=== PATIENT | male | born 1960 | race Caucasian/White ===

== ENCOUNTER → 2016-10-01 | Outpatient (REF) | LOC: M LAB 11:26 | PROVIDERS: ATTEND Nurse Practitioner Adult Health | DX: Z02.89 Encounter for other administrative examinations (principal) ==

== ENCOUNTER 2017-05-08 08:02 | Day surgery (SDC) | payer OTHER ==
[~2017-05-08 08:02] MED LIST: LIDOCAINE 2% INJ 100 MG/5 ML SDV (FOR ANES.) As Ordered; PROPOFOL 200 MG/20 ML VIAL As Ordered
[2017-05-08] MEDS ORDERED: NS 1,000 ML IV (09:45)
== END 2017-05-08 09:38 | disposition home or self-care (01) ==
LOC: M OPP 08:02
DX: Z12.11 Encounter for screening for malignant neoplasm of colon (principal); D12.5 Benign neoplasm of sigmoid colon; K64.4 Residual hemorrhoidal skin tags; K64.8 Other hemorrhoids; K21.9 Gastro-esophageal reflux disease without esophagitis; R12 Heartburn; M54.2 Cervicalgia; F43.10 Post-traumatic stress disorder, unspecified; Z79.899 Other long term (current) drug therapy; Z80.3 Family history of malignant neoplasm of breast; Z87.891 Personal history of nicotine dependence
CPT/HCPCS: 45380

== ENCOUNTER 2023-12-03 12:26 | Observation (INO) | payer OTHER ==
[~2023-12-03] VITALS: Ht 188 cm; Wt 103.2 kg
[~2023-12-03 12:26] MED LIST changes: +ATOR1TAB21 PO; +ERGO500029 PO; +IBUP80TA; -LIDOCAINE 2% INJ 100 MG/5 ML SDV (FOR ANES.) As Ordered; +OMEP-173 PO; +OMEP1CAP73; -PROPOFOL 200 MG/20 ML VIAL As Ordered; +SUDO30TA2
[2023-12-03] MEDS ORDERED: ISOVUE-370 76% 100ML VIAL As Ordered ONE (13:11)
[2023-12-03 13:33] LABS: BASO # 0.1 10^3/uL (0.0-0.2); BASO % 0.8 % (0.0-1.0); EOS # 0.1 10^3/uL (0.0-0.5); HEMATOCRIT 38.4 % (42.0-52.0); LYMPH # 1.3 10^3/uL (1.5-5.0); LYMPH % 20.7 % (24.0-44.0); MEAN CORPUSCULAR HEMOGLOBIN 32.5 pg (27.0-33.0); MEAN CORPUSCULAR HGB CONC 33.9 g/dl (32.0-36.5); MONO # 0.6 10^3/uL (0.0-0.8); MONO % 9.8 % (2.0-8.0); NEUTROPHILS # 4.2 10^3/uL (1.5-8.5); NEUTROPHILS % 67.4 % (36.0-66.0); WHITE BLOOD COUNT 6.2 10^3/uL (4.0-10.0)
[2023-12-03 13:54] LABS: BLOOD UREA NITROGEN 18 MG/DL (9-23); CALCIUM LEVEL 9.2 MG/DL (8.3-10.6); CARBON DIOXIDE LEVEL 25 MMOL/L (20-31); CHLORIDE LEVEL 111 MMOL/L (98-107); CPK CREATINE PHOSPHOKINASE 111 U/L (46-171); CREATININE FOR GFR 1.03 MG/DL (0.70-1.30); GLOMERULAR FILTRATION RATE > 60.0 (>49); GLUCOSE, FASTING 102 MG/DL (74-106); POTASSIUM SERUM 3.8 MMOL/L (3.5-5.1); SODIUM LEVEL 142 MMOL/L (136-145)
[2023-12-03 13:55] LABS: CK-MB VALUE MASS < 1.0 NG/ML (<3.6)
[2023-12-03 14:03] LABS: INR 1.02; PARTIAL THROMBOPLASTIN TIME 21.3 SECONDS (24.8-34.2); PROTHROMBIN TIME 13.1 SECONDS (12.5-14.5)
[2023-12-03] MEDS: CLOPIDOGREL 300 MG TAB (PLAVIX) PO STA (14:52)
[2023-12-03 14:54] LABS: CHOLESTEROL LEVEL 152 MG/DL (<200); CHOLESTEROL RISK RATIO 2.28 (<5); HDL CHOLESTEROL 66.6 MG/DL (>40); NON-HDL-C 85.4 MG/DL; TRIGLYCERIDES LEVEL 67 MG/DL (<150)
[2023-12-03] MEDS: NS 1,000 ML IV SCH (14:55)
[2023-12-03] MEDS: ASPIRIN 325 MG TAB PO ONE (14:55)
[2023-12-03] MEDS: ATORVASTATIN 20 MG TAB PO ONE (14:55)
[2023-12-03] MEDS ORDERED: [UNRECOGNIZED DRUG - CODE] PO (15:07)
[2023-12-03] MEDS ORDERED: VITA180C2 PO (15:07)
[2023-12-03] MEDS ORDERED: MV-M1TAB66 PO (15:07)
[2023-12-03] MEDS ORDERED: HOME MED LIST COMPLETE! XX SCH (15:10)
[2023-12-03 15:45] LABS: PLATELET COUNT, AUTOMATED 258 10^3/uL (150-450)
[2023-12-03] MEDS: NS 1,000 ML IV ONE (19:20)
[2023-12-03 21:47] VITALS: BP 117/65; TEMP 97.5; O2SAT 96
[2023-12-04 03:13] VITALS: BP 125/65; TEMP 98.5; O2SAT 97
[2023-12-04 06:40] LABS: HEMATOCRIT 33.1 % (42.0-52.0); HEMOGLOBIN 11.2 g/dl (13.5-17.5); MEAN CORPUSCULAR HEMOGLOBIN 32.8 pg (27.0-33.0); MEAN CORPUSCULAR HGB CONC 33.8 g/dl (32.0-36.5); MEAN CORPUSCULAR VOLUME 97.1 fl (80.0-96.0); PLATELET COUNT, AUTOMATED 214 10^3/uL (150-450); RED BLOOD COUNT 3.41 10^6/uL (4.30-6.10); WHITE BLOOD COUNT 5.3 10^3/uL (4.0-10.0)
[2023-12-04 06:51] LABS: BLOOD UREA NITROGEN 13 MG/DL (9-23); CALCIUM LEVEL 8.8 MG/DL (8.3-10.6); CARBON DIOXIDE LEVEL 25 MMOL/L (20-31); CHLORIDE LEVEL 114 MMOL/L (98-107); CREATININE FOR GFR 0.91 MG/DL (0.70-1.30); GLOMERULAR FILTRATION RATE > 60.0 (>49); GLUCOSE, FASTING 101 MG/DL (74-106); POTASSIUM SERUM 3.8 MMOL/L (3.5-5.1); SODIUM LEVEL 143 MMOL/L (136-145)
[2023-12-04 07:08] LABS: HEMOGLOBIN A1c 5.1 % (4.0-6.0)
[2023-12-04] MEDS: CLOPIDOGREL 75 MG TAB PO SCH (09:14)
[2023-12-04] MEDS: ATORVASTATIN 20 MG TAB PO SCH (09:14)
[2023-12-04] MEDS: ENOXAPARIN 40MG/0.4ML SYRINGE (J1650 PER 10MG) SC SCH (09:14)
[2023-12-04] MEDS: ASPIRIN 81MG CHEW TABLET PO SCH (09:14)
[2023-12-04] MEDS: PANTOPRAZOLE 20 MG TAB PO SCH (10:13)
[2023-12-04 14:05] VITALS: BP 137/84; TEMP 97.6; O2SAT 97
[2023-12-04] MEDS ORDERED: ASPI81CH33 PO (14:05)
[2023-12-04] MEDS ORDERED: ATOR80TA59 PO (14:05)
== END 2023-12-04 14:45 | disposition home or self-care (01) ==
LOC: M ED 12:26 → EDBD 12:26 → INTOOBSV 12:27 → M ED INP 12:27
PROVIDERS: ADMIT Internal Medicine; ATTEND Internal Medicine
DX: R47.01 Aphasia (principal); R55 Syncope and collapse; R42 Dizziness and giddiness; R00.1 Bradycardia, unspecified; I73.9 Peripheral vascular disease, unspecified; J01.00 Acute maxillary sinusitis, unspecified; E78.5 Hyperlipidemia, unspecified; K21.9 Gastro-esophageal reflux disease without esophagitis; R03.0 Elevated blood-pressure reading, without diagnosis of hypertension; Z79.899 Other long term (current) drug therapy
CPT/HCPCS: 36415; 70450; 70496; 70498; 70544; 70551; 71045; 80047; 80048; 80061; 82550; 82553; 83036; 84484; 85025; 85027; 85049; 85610; 85730; 93005; 93041; 93306; 94760; 96360; 96361; 96372; 97161; 99285; J1650; Q9967